=== PATIENT | female | born 1980 | race Caucasian/White ===

== ENCOUNTER 2017-08-13 21:11 | Emergency (ER) | payer OTHER ==
[~2017-08-13] VITALS: Ht 167.6 cm; Wt 96.2 kg
[2017-08-13 21:15] VITALS: TEMP 36.7; Ht 167.6 cm; Wt 96.2 kg
[2017-08-13] MEDS ORDERED: TYLENOL COLD & COUGH PO (21:38)
--- NOTE | 2017-08-13 21:57 | DIAGNOSTIC IMAGING REPORT ---
L HAND MIN 3 VIEWS ROUTINE CLINICAL HISTORY: Left hand injury. COMPARISON: None FINDINGS: Alignment of the left hand is anatomic. No acute fracture is identified. IMPRESSION: No acute fracture or dislocation of the left hand. Electronically signed by: Star Ramirez M.D. 08/13/2017 9:56 PM Dictated Date/Time: 08/13/2017 9:54 PM
[2017-08-13 22:30] VITALS: BP 148/100; PULSE 86; O2SAT 97
--- NOTE | 2017-08-14 00:35 | EMERGENCY ROOM VISIT NOTE ---
History First contact with patient: 21:32 Chief Complaint: HAND PAIN/INJURY Stated Complaint: INJURED L HAND History of Present Illness The patient is a 37 year old female who presents to the Emergency Room with complaints of injuries to her left hand after she tripped and fell onto a sidewalk/curb. The patient reports an abrasion to the base of her fingers, as well as notable bruising and swelling. She rates her discomfort a 2 out of 10. She does report paresthesias of the left fourth and fifth fingers. She denies any pain extending into the wrist or forearm. The patient is right-hand- dominant. Tetanus immunization is up-to-date. Review of Systems 10 system review was performed and was negative except for pertinent positives and negatives as indicated in history of present illness Past Medical/Surgical History Medical Problems: (1) No significant past medical history Surgical Problems: (1) History of appendectomy Family History FH: cancer FH: diabetes mellitus FH: kidney disease Social History Smoking Status: Never Smoker Alcohol Use: occasionally Marital Status: Housing Status: lives with family Occupation Status: employed Current/Historical Medications Scheduled PRN [Tylenol Cold & Cough], 2 CAP PO BID PRN for Cough Physical Exam Vital Signs Date Time Temp Pulse Resp B/P (MAP) Pulse Ox O2 Delivery O2 Flow Rate FiO2 08/13/17 22:30 86 16 148/100 97 08/13/17 21:15 36.7 91 18 157/98 98 Room Air Physical Exam CONSTITUTIONAL: Healthy and well nourished. Alert and oriented X 3 with positive affect. Patient does not appear in any acute distress. HEENT: Normocephalic, atraumatic. Pupils equal, round and reactive. NECK: Full active range of motion without discomfort. MUSCULOSKELETAL: Examination of the left hand shows an abrasion over the dorsal fourth and fifth metacarpal heads. She also has notable edema and ecchymosis dorsally, without any obvious ecchymosis or erythema through the palm of the hand. Flexion and extension worsens her pain, but she is able to actively do so. She has no additional tenderness through the proximal metacarpals or wrist. Capillary refill is less than 2 seconds. INTEGUMENTARY: No rash or other significant dermatologic conditions noted. NEUROLOGIC: No focal neurologic deficits noted. Left hand and fingers are sensory intact. Medical Decision & Procedures ER Provider Diagnostic Interpretation: My interpretation of left hand x-rays does not show any obvious fractures or dislocations. Radiologist report is as follows: L HAND MIN 3 VIEWS ROUTINE CLINICAL HISTORY: Left hand injury. COMPARISON: None FINDINGS: Alignment of the left hand is anatomic. No acute fracture is identified. IMPRESSION: No acute fracture or dislocation of the left hand. ED Course Patient history and physical exam were performed. Nurse's notes were reviewed. Vital signs were reviewed, showing an elevated blood pressure 157/98. The patient refused any analgesics while in the emergency department. X-rays of the left hand were normal. An ice pack was applied. After returning from x-ray , the wound was cleansed and covered with a bacitracin dressing, then a metal splint and juan manuel taping were applied to the fourth and fifth fingers. The patient was encouraged to perform range of motion exercises of the fingers to prevent stiffness. Intermittent application of ice and elevation as needed for swelling and pain. Ibuprofen and Tylenol in alternating fashion if needed for additional pain relief. I did suggest orthopedic follow-up if symptoms are not significantly improving within the next week. The patient was happy with plan of care, voiced understanding of all discharge instructions, and rated her discomfort a 2 out of 10 at the time of discharge. The patient was advised that her blood pressure is elevated, and suggested follow-up with her PCP for blood pressure recheck. Medical Decision Medication Reconcilliation Current Medication List: was personally reviewed by me Blood Pressure Screening Patient's blood pressure: Elevated blood pressure Blood pressure disposition: Referred to PCP Impression Primary Impression: Contusion of left hand Additional Impressions: Elevated blood pressure reading Fall from slip, trip, or stumble Departure Information Referrals Fernando Warren M.D. (PCP) Patient Instructions My [facility] Problem Qualifiers Primary Impression: Contusion of left hand Encounter type: initial encounter Qualified Codes: S60.222A - Contusion of left hand, initial encounter Additional Impressions: Fall from slip, trip, or stumble Encounter type: initial encounter Qualified Codes: W01.0XXA - Fall on same level from slipping, tripping and stumbling without subsequent striking against object, initial encounter
== END 2017-08-13 22:32 | disposition home or self-care (01) ==
LOC: C.EDB 21:12 → C.EDD 22:32
DX: S60.222A Contusion of left hand, initial encounter (principal); W01.0XXA Fall on same level from slipping, tripping and stumbling without subsequent striking against object, initial encounter; R03.0 Elevated blood-pressure reading, without diagnosis of hypertension; Z98.890 Other specified postprocedural states; Z80.9 Family history of malignant neoplasm, unspecified; Z83.3 Family history of diabetes mellitus; Z84.1 Family history of disorders of kidney and ureter